=== PATIENT | female | born 1980 | race Caucasian/White ===

== ENCOUNTER 2018-03-05 21:27 | Observation (INO) ==
[2018-03-05] MEDS ORDERED: ASPIRIN 325 MG TABLET PO STA (21:57)
[2018-03-05] MEDS ORDERED: ONDANSETRON 4 MG/2 ML VIAL IV STA (21:57)
[2018-03-05] MEDS ORDERED: MORPHINE 4 MG/1 ML VIAL IV STA (21:57)
[2018-03-05] MEDS ORDERED: ALUM/MAG/SIMETH/LIDO VISC 1:1 30 ML BOTTLE PO STA (21:57)
[2018-03-05] MEDS ORDERED: NITROGLYCERIN 2% OINT 1 INCH/GM PACK TOP STA (21:57)
[2018-03-05 22:04] LABS: Basophils # 0.1 10*3/uL (0.0-0.2); Basophils % 0.8 % (0.0-0.8); Eosinophils # 0.3 10*3/uL (0.0-0.87); Eosinophils % 3.9 % (0.00-10.9); Hematocrit 39.6 VOL% (35.7-47.0); Hemoglobin 13.4 GM/DL (12.0-16.0); Immature Granulocytes % 0.3 %; Immature Granulocytes Absolute 0.02 #; Lymphocytes # 3.6 10*3/uL (1.4-4.0); Lymphocytes % 49.2 % (21.3-54.2); Mean Corpuscular HGB Conc 33.8 GM/DL (32-36); Mean Corpuscular Hemoglobin 31 PG (27-34); Mean Corpuscular Volume 91.9 FL (87-102); Monocytes # 0.6 10*3/uL (0.11-0.8); Neutrophils # 2.8 10*3/uL (1.4-7.4); Neutrophils % 37.8 % (38.7-73.9); Platelet Count 270 T/CUMM (130-400); Red Blood Count 4.31 MC/CUMM (3.8-5.5); Red Cell Distribution Width 11.8 % (9.3-17.3); White Blood Count 7.4 T/CUMM (4-12)
[2018-03-05 22:15] LABS: INR 0.9
[2018-03-05 22:25] LABS: Albumin 3.9 G/DL (3.4-5.0); Bilirubin,Total 0.4 MG/DL (0.2-1.0); Calcium 9.2 MG/DL (8.5-10.1); Osmolality,Calculated 278.4 MOS/KG (273-304); Potassium 3.6 MMOL/L (3.5-5.1); Total Protein 7.9 G/DL (6.4-8.3)
[2018-03-05 22:40] LABS: Eosinophils 10 % (0-10); Lymphocytes 51 % (20-55); Platelet Estimate Adequate; Segmented Neutrophils 32 % (50-85); Total Cells Counted 100
[2018-03-05] MEDS ORDERED: ENOXAPARIN 100 MG/ML SYRINGE SUBCUT STA (22:47)
[2018-03-05] MEDS ORDERED: LORazepam 2 MG/1 ML VIAL IV STA (23:30)
[2018-03-06] MEDS ORDERED: KETOROLAC 30 MG/1 ML VIAL IV STA (00:06)
[2018-03-06 00:31] LABS: Apearance,Urine Slightly Hazy (Clear); Bacteria,Urine Occasional /HPF (Few); Bilirubin,Urine Negative (Negative); Blood, Urine Negative (Negative); Glucose,Urine (UA) Negative (Negative); Ketones,Urine Negative (Negative); Nitrite,Urine Negative (Negative); Protein,Urine Negative; RBC,Urine <1 /HPF (0-4); Squamous Epithelial Cell,Urine Occasional /HPF (0-10); Urine Color Straw (Yellow); Urine Specific Gravity 1.006 (1.001-1.035); Urine Urobilinogen < 2.0 EU/DL (0.2-1.0); WBC,Urine 3 /HPF (0-6)
[2018-03-06 00:42] LABS: Barbiturates Screen,Urine Negative (Negative); Benzodiazepines Screen,Urine Negative (Negative); Cannabinoid Screen,Urine Negative (Negative); Opiate Screen,Urine Positive (Negative); Phencyclidine Screen,Urine Negative (Negative)
[2018-03-06] MEDS ORDERED: ONDANSETRON 4 MG/2 ML VIAL IV PRN (01:21)
[2018-03-06] MEDS ORDERED: MORPHINE 4 MG/1 ML VIAL IV PRN (01:21)
[2018-03-06] MEDS ORDERED: ACETAMINOPHEN 325 MG TABLET PO PRN (01:21)
[2018-03-06] MEDS ORDERED: NITROGLYCERIN SL 0.4 MG TABLET SL PRN (01:28)
[2018-03-06 06:36] LABS: Basophils % 0.5 % (0.0-0.8); Eosinophils # 0.3 10*3/uL (0.0-0.87); Hematocrit 36.2 VOL% (35.7-47.0); Hemoglobin 12.4 GM/DL (12.0-16.0); Immature Granulocytes % 0.2 %; Immature Granulocytes Absolute 0.01 #; Lymphocytes # 3.2 10*3/uL (1.4-4.0); Mean Corpuscular HGB Conc 34.3 GM/DL (32-36); Mean Corpuscular Hemoglobin 32 PG (27-34); Mean Corpuscular Volume 92.1 FL (87-102); Mean Platelet Volume 10.5 FL (9.6-12.0); Monocytes # 0.6 10*3/uL (0.11-0.8); Monocytes % 9.8 % (1.7-12.7); Neutrophils # 2.1 10*3/uL (1.4-7.4); Neutrophils % 33.5 % (38.7-73.9); Platelet Count 260 T/CUMM (130-400); Red Blood Count 3.93 MC/CUMM (3.8-5.5); Red Cell Distribution Width 11.9 % (9.3-17.3); White Blood Count 6.2 T/CUMM (4-12)
[2018-03-06 07:01] LABS: Calcium 8.3 MG/DL (8.5-10.1); Osmolality,Calculated 281.3 MOS/KG (273-304); Potassium 3.5 MMOL/L (3.5-5.1); Risk Ratio 4.43; Thyroid Stimulating Hormone 3.11 uIU/ml (0.358-3.74); VLDL CHOLESTEROL 41.4 MG/DL
[2018-03-06 07:05] LABS: Eosinophils 4 % (0-10); Hypochromasia 1+; Lymphocytes 50 % (20-55); Platelet Estimate Adequate; Segmented Neutrophils 37 % (50-85); Total Cells Counted 100
[2018-03-06] MEDS: FUROSEMIDE 20 MG TABLET PO SCH (10:25)
[2018-03-06] MEDS: ATORVASTATIN 20 MG TABLET PO SCH (10:26)
[2018-03-06] MEDS: clonazePAM 0.5 MG TABLET PO SCH (10:26)
[2018-03-06] MEDS: MAGNESIUM OXIDE 400 MG TABLET PO SCH (10:26)
[2018-03-06] MEDS: POTASSIUM CHLORIDE 10 MEQ TABLET PO SCH ×2 (10:26→20:14)
[2018-03-06] MEDS: PANTOPRAZOLE 40 MG TABLET PO SCH (10:27)
[2018-03-06] MEDS: hydrALAZINE 10 MG TABLET PO SCH ×3 (10:27→20:14)
[2018-03-06] MEDS ORDERED: ENOXAPARIN 40 MG/0.4 ML SYRINGE SUBCUT SCH (21:00)
[2018-03-07] MEDS: hydrALAZINE 10 MG TABLET PO SCH (08:50)
[2018-03-07] MEDS: MAGNESIUM OXIDE 400 MG TABLET PO SCH (08:50)
[2018-03-07] MEDS: PANTOPRAZOLE 40 MG TABLET PO SCH (08:50)
[2018-03-07] MEDS: clonazePAM 0.5 MG TABLET PO SCH (08:50)
[2018-03-07] MEDS: POTASSIUM CHLORIDE 10 MEQ TABLET PO SCH (08:51)
[2018-03-07] MEDS: FUROSEMIDE 20 MG TABLET PO SCH (08:51)
[2018-03-07] MEDS: ATORVASTATIN 20 MG TABLET PO SCH (08:51)
[2018-03-07 08:55] VITALS: BP 112/73
== END 2018-03-07 11:02 | disposition home or self-care (01) ==
LOC: N.ED 21:27 → N.EDINP 21:27 → N.5E 03-06 01:33
PROVIDERS: ADMIT Internal Medicine; ATTEND Internal Medicine

== ENCOUNTER 2020-10-22 00:58 | Observation (INO) ==
[2020-10-22] MEDS ORDERED: ASPIRIN 325 MG TABLET PO STA (01:14)
[2020-10-22] MEDS ORDERED: ALUM/MAG/SIMETH/LIDO VISC 1:1 30 ML BOTTLE PO STA (01:14)
[2020-10-22] MEDS ORDERED: NITROGLYCERIN 2% OINT 1 INCH/GM PACK TOP STA (01:14)
[2020-10-22] MEDS ORDERED: HYDROmorphone 2 MG/1 ML VIAL IV STA (01:14)
[2020-10-22] MEDS ORDERED: ONDANSETRON 4 MG/2 ML VIAL IV STA (01:14)
[2020-10-22 01:45] LABS: Basophils % 0.5 % (0.0-0.8); Eosinophils # 0.4 10*3/uL (0.0-0.87); Eosinophils % 5.3 % (0.00-10.9); Hematocrit 38.2 VOL% (35.7-47.0); Hemoglobin 12.5 GM/DL (12.0-16.0); Immature Granulocytes % 0.3 %; Immature Granulocytes Absolute 0.02 #; Lymphocytes # 2.8 10*3/uL (1.4-4.0); Lymphocytes % 35.4 % (21.3-54.2); Mean Corpuscular HGB Conc 32.7 GM/DL (32-36); Mean Corpuscular Volume 92.7 FL (87-102); Mean Platelet Volume 9.7 FL (9.6-12.0); Monocytes % 7.3 % (1.7-12.7); Neutrophils % 51.2 % (38.7-73.9); Platelet Count 280 T/CUMM (130-400); Red Blood Count 4.12 MC/CUMM (3.8-5.5); White Blood Count 7.9 T/CUMM (4-12)
[2020-10-22 01:55] LABS: Bilirubin,Urine Negative (Negative); Blood, Urine Negative (Negative); Glucose,Urine (UA) Negative (Negative); Ketones,Urine Negative (Negative); Mucus,Urine Few /LPF (Occasional); Nitrite,Urine Negative (Negative); Protein,Urine 30 MG/DL; RBC,Urine 11 /HPF (0-4); Squamous Epithelial Cell,Urine Few /HPF (0-10); Urine Appearance Slightly Hazy (Clear); Urine Color Yellow (Yellow); Urine Specific Gravity 1.027 (1.001-1.035); Urine Urobilinogen < 2.0 EU/DL (0.2-1.0); WBC,Urine 54 /HPF (0-6)
[2020-10-22 01:59] LABS: Barbiturates Screen,Urine Negative (Negative); Benzodiazepines Screen,Urine Negative (Negative); Cannabinoid Screen,Urine Negative (Negative); Opiate Screen,Urine Positive (Negative); Phencyclidine Screen,Urine Negative (Negative)
[2020-10-22 02:06] LABS: Eosinophils 3 % (0-10); Lymphocytes 39 % (20-55); Segmented Neutrophils 56 % (50-85); Total Cells Counted 100
[2020-10-22] MEDS ORDERED: cefTRIAXone 1,000 MG in SODIUM CHLORIDE 0.9% 100 ML IV STA (02:06)
[2020-10-22 02:07] LABS: Hypochromasia 1+; Microcytosis Slight; PT Patient Result 10.3 SECS (9.8-11.9); Platelet Estimate Adequate; Reactive Lymphocytes Slight
[2020-10-22 02:08] LABS: Alanine Aminotransferase 32 U/L (13-56); Albumin 3.6 G/DL (3.4-5.0); Alkaline Phosphatase 106 U/L (45-117); Aspartate Amino Transferase 22 U/L (0-37); Bilirubin,Total < 0.39 MG/DL (0.2-1.0); Blood Urea Nitrogen 14 MG/DL (7-18); Calcium 8.8 MG/DL (8.5-10.1); Carbon Dioxide 29 MMOL/L (21-32); Estimated Glom Filtration Rate 119 ML/MIN; Glucose 145 MG/DL (74-106); Osmolality,Calculated 278.7 MOS/KG (273-304); Potassium 3.7 MMOL/L (3.5-5.1); Sodium 138 MMOL/L (136-145); Total Protein 7.5 G/DL (6.4-8.3)
[2020-10-22] MEDS ORDERED: ENOXAPARIN 100 MG/ML SYRINGE SUBCUT STA (02:30)
[2020-10-22] MEDS ORDERED: DEXTROSE 50% 25 GM/50 ML VIAL IV PRN (03:21)
[2020-10-22] MEDS ORDERED: GLUCAGON 1 MG VIAL IM PRN (03:21)
[2020-10-22] MEDS ORDERED: ONDANSETRON 4 MG/2 ML VIAL IV PRN (03:21)
[2020-10-22 07:13] LABS: HDL Cholesterol 42 MG/DL (40-60); Risk Ratio 2.76; Triglycerides 170 MG/DL (2-150); Troponin I < 0.015 NG/ML (0.00-0.045)
[2020-10-22 07:22] VITALS: BP 114/56
[2020-10-22] MEDS ORDERED: ACETAMINOPHEN 325 MG TABLET PO PRN (07:39)
[2020-10-22] MEDS ORDERED: traMADol 50 MG TABLET PO PRN (10:26)
[2020-10-23] MEDS ORDERED: ASPIRIN EC 325 MG TABLET PO SCH (09:00)
== END 2020-10-22 11:35 | disposition left against medical advice (07) ==
LOC: N.ED 00:58 → N.EDINP 00:58 → N.3E 03:55
PROVIDERS: ADMIT Emergency Medicine; ATTEND Emergency Medicine

== ENCOUNTER 2022-10-21 00:37 | Observation (INO) ==
[2022-10-21 01:29] LABS: Basophils % 0.5 % (0.0-0.8); Eosinophils # 0.4 10*3/uL (0.0-0.87); Eosinophils % 4.8 % (0.00-10.9); Hematocrit 36.4 VOL% (35.7-47.0); Hemoglobin 12.1 GM/DL (12.0-16.0); Immature Granulocytes % 0.1 %; Immature Granulocytes Absolute 0.01 #; Lymphocytes # 3.4 10*3/uL (1.4-4.0); Mean Corpuscular HGB Conc 33.2 GM/DL (32-36); Mean Corpuscular Volume 92.4 FL (87-102); Mean Platelet Volume 9.1 FL (9.6-12.0); Monocytes # 0.6 10*3/uL (0.11-0.8); Monocytes % 7.6 % (1.7-12.7); Platelet Count 278 T/CUMM (130-400); Red Blood Count 3.94 MC/CUMM (3.8-5.5); Red Cell Distribution Width 12.4 % (9.3-17.3); White Blood Count 8.25 T/CUMM (4-12)
[2022-10-21] MEDS ORDERED: NITROGLYCERIN SL 0.4 MG TABLET SL STA (01:55)
[2022-10-21] MEDS ORDERED: MORPHINE 2 MG/1 ML SYRINGE IV STA (01:55)
[2022-10-21] MEDS ORDERED: ASPIRIN CHEW 81 MG TABLET PO STA (01:55)
[2022-10-21 01:56] LABS: Alanine Aminotransferase 35 U/L (13-56); Albumin 3.5 G/DL (3.4-5.0); Alkaline Phosphatase 104 U/L (45-117); Aspartate Amino Transferase 30 U/L (0-37); Bilirubin,Total < 0.39 MG/DL (0.20-1.00); Blood Urea Nitrogen 9 MG/DL (7-18); Calcium 8.7 MG/DL (8.5-10.1); Carbon Dioxide 27 MMOL/L (21-32); Chloride 105 MMOL/L (98-107); Glucose 194 MG/DL (74-106); Osmolality,Calculated 278.7 MOS/KG (273-304); Potassium 3.1 MMOL/L (3.5-5.1); Sodium 138 MMOL/L (136-145)
[2022-10-21] MEDS ORDERED: FUROSEMIDE 40 MG/4 ML VIAL IV STA (02:18)
[2022-10-21] MEDS ORDERED: POTASSIUM CHLORIDE 20 MEQ TABLET PO STA (02:23)
[2022-10-21] MEDS ORDERED: ENOXAPARIN 100 MG/ML SYRINGE SUBCUT STA (02:23)
[2022-10-21] MEDS ORDERED: MORPHINE 2 MG/1 ML SYRINGE IV PRN (03:18)
[2022-10-21] MEDS ORDERED: hydrALAZINE 20 MG/1 ML VIAL IV PRN (03:18)
[2022-10-21] MEDS ORDERED: ACETAMINOPHEN 325 MG TABLET PO PRN (03:18)
[2022-10-21] MEDS ORDERED: ONDANSETRON 4 MG/2 ML VIAL IV PRN (03:18)
[2022-10-21 04:23] LABS: Calcium 8.8 MG/DL (8.5-10.1); Osmolality,Calculated 281.4 MOS/KG (273-304); Potassium 3.2 MMOL/L (3.5-5.1)
[2022-10-21 04:32] LABS: Risk Ratio 2.92; Thyroid Stimulating Hormone 4.66 uIU/ml (0.358-3.74); VLDL Cholesterol 37.4 MG/DL
[2022-10-21 07:15] LABS: Free T4 (Free Thyroxine) 1.02 NG/DL (0.76-1.46)
[2022-10-21] MEDS ORDERED: PANTOPRAZOLE 40 MG TABLET PO SCH (09:00)
[2022-10-21] MEDS: POTASSIUM CHLORIDE 20 MEQ TABLET PO PRN ×4 (09:07→14:31)
[2022-10-21 11:47] VITALS: BP 117/53
[2022-10-21] MEDS ORDERED: hydrALAZINE 10 MG TABLET PO SCH (15:00)
[2022-10-22] MEDS ORDERED: ASPIRIN EC 81 MG TABLET PO SCH (09:00)
[2022-10-22] MEDS ORDERED: ROSUVASTATIN 20 MG TABLET PO SCH (09:00)
== END 2022-10-21 15:22 | disposition home or self-care (01) ==
LOC: N.ED 00:37 → N.2W 00:37 → SUATTDRO 03:18 → N.2W 06:08
PROVIDERS: ADMIT Internal Medicine; ATTEND Internal Medicine